=== PATIENT | female | born 1960 | race Caucasian/White ===

== ENCOUNTER 2019-10-12 10:58 | Inpatient (IN) ==
[2019-10-12] MEDS ORDERED: Famotidine 20 MG/2 ML VIAL IVP ONE (11:10)
[2019-10-12] MEDS ORDERED: CeFAZolin Syr 2,000MG/20 ML 2,000 MG/20 ML SYRINGE IVPB ONE (11:49)
[2019-10-12] MEDS ORDERED: *HR* Midazolam HCl 2 MG/2 ML VIAL ONE (11:56)
[2019-10-12] MEDS ORDERED: Dexamethasone 4 MG/ML VIAL ONE (11:56)
[2019-10-12] MEDS ORDERED: *HR* FentaNYL (PF) 100 MCG/2 ML VIAL ONE (11:56)
[2019-10-12] MEDS ORDERED: *HR* Propofol 200 MG/20 ML VIAL IVP ONE ×3 (11:58→13:30)
[2019-10-12] MEDS ORDERED: *HR* OxyCODONE Immed Rel 5 MG TABLET PO PRN ×2 (11:58→15:25)
[2019-10-12] MEDS ORDERED: *HR* Succinylcholine 200 MG/10 ML VIAL IVP ONE (11:58)
[2019-10-12] MEDS ORDERED: *HR* Labetalol 20 MG/4 ML SYRINGE IVP PRN (11:58)
[2019-10-12] MEDS ORDERED: Celecoxib 100 MG CAPSULE PO ONE (11:58)
[2019-10-12] MEDS ORDERED: *HR* HYDROmorphone PF 0.5 MG/0.5 ML SYRINGE IVP PRN (11:58)
[2019-10-12] MEDS ORDERED: *HR* Promethazine 25 MG/ML VIAL IVP PRN (11:58)
[2019-10-12] MEDS ORDERED: Lidocaine -MPF 2% 2 ML VIAL ONE (11:58)
[2019-10-12] MEDS ORDERED: Ondansetron 4 MG/2 ML VIAL IVP PRN ×2 (11:58→15:25)
[2019-10-12] MEDS ORDERED: Ringers Solution, Lactated 1,000 ML IVC SCH ×2 (12:00→15:25)
[2019-10-12] MEDS ORDERED: ROPIVACAINE/PF/NS 0.25% 1 EACH SYRINGE INTRAART ONE (12:17)
[2019-10-12] MEDS ORDERED: Ropivacaine/PF 0.5% 30 ML VIAL ONE (12:17)
[2019-10-12] MEDS ORDERED: Ethanol\\Acetic Acid\\Na Ace\\Ben 1,000 ML IRRIG.SOLN IR ONE (12:29)
[2019-10-12] MEDS ORDERED: *HR* PHENYLEPHRINE 1,000 MCG/10 ML SYRINGE IVP ONE (13:24)
[2019-10-12] MEDS ORDERED: Ondansetron 4 MG/2 ML VIAL ONE (13:31)
[2019-10-12] MEDS ORDERED: Vancomycin 1,000 MG VIAL ONE (13:32)
[2019-10-12] MEDS ORDERED: *HR* Rocuronium Bromide 50 MG/5 ML VIAL ONE (13:34)
[2019-10-12] MEDS ORDERED: EPHEDrine 50 MG/ML VIAL ONE (13:40)
[2019-10-12] MEDS ORDERED: Neostigmine Methylsulfate 3 MG/3 ML SYRINGE ONE (14:04)
[2019-10-12 15:15] LABS: Hematocrit 41.6 % (35.3-44.9)
[2019-10-12] MEDS ORDERED: D5% in Water 1,000 ML IVC PRN (15:25)
[2019-10-12] MEDS ORDERED: Naloxone 0.4 MG/ML INJ IVP PRN (15:25)
[2019-10-12] MEDS ORDERED: MOM Conc 10 ML UD.LIQ PO PRN (15:25)
[2019-10-12] MEDS ORDERED: Sennosides 8.6 MG TABLET PO PRN (15:25)
[2019-10-12] MEDS ORDERED: *HR* Dextrose 50 % in Water (Syg) 50 ML SYRINGE IVP PRN (15:25)
[2019-10-12] MEDS ORDERED: Dextrose Gel 15 GM/37.5 ML TUBE PO PRN ×2 (15:25)
[2019-10-12] MEDS ORDERED: *HR* OxyCODONE/APAP 5/325 TABLET PO PRN (15:25)
[2019-10-12] MEDS ORDERED: *HR* Enoxaparin 30 MG/0.3 ML SYRINGE SQ SCH (18:00)
[2019-10-12] MEDS: Insulin LISPRO 300 UNITS/3 ML VIAL SQ SCH (18:30)
[2019-10-12] MEDS: *HR* Enoxaparin 30 MG/0.3 ML SYRINGE SQ SCH (18:31)
[2019-10-12] MEDS ORDERED: Insulin LISPRO 300 UNITS/3 ML VIAL SQ SCH (21:00)
[2019-10-12] MEDS: CeFAZolin 2 GM/120 ML BAG IVPB SCH (23:09)
[2019-10-13 06:29] LABS: Hematocrit 37.1 % (35.3-44.9); Hemoglobin 11.5 g/dL (11.5-15.4)
[2019-10-13 06:40] LABS: BUN/Creatinine Ratio 25 (6-26); Blood Urea Nitrogen 15 mg/dL (6-20); Calcium 8.2 mg/dL (8.6-10.3); Carbon Dioxide 27 mEq/L (23-29); Chloride 101 mEq/L (98-107); Glucose 152 mg/dL (70-105); Osmolality,Calculated 286 (280-300); Potassium 4.2 mEq/L (3.5-5.1); Sodium 136 mEq/L (136-145); eGFR For African Americans > 60 (> 60); eGFR For Non-African Americans > 60 (> 60)
[2019-10-13] MEDS: CeFAZolin 2 GM/120 ML BAG IVPB SCH (06:46)
[2019-10-13] MEDS: *HR* Enoxaparin 30 MG/0.3 ML SYRINGE SQ SCH (06:46)
[2019-10-13 07:07] VITALS: BP 105/67
[2019-10-13] MEDS: Insulin LISPRO 300 UNITS/3 ML VIAL SQ SCH (08:29)
== END 2019-10-13 11:32 | disposition home or self-care (01) | DRG 483 ==
LOC: SAMDAY 10:58 → 3NENU 15:23 → SAMDAY 10-13 11:32 → 3NENU 10-23 09:51
PROVIDERS: ADMIT Orthopaedic Surgery; ATTEND Orthopaedic Surgery